=== PATIENT | female | born 1945 | race Caucasian/White ===

== ENCOUNTER 2017-10-17 11:00 | Outpatient (RCR) | payer MEDICARE, MEDICAID ==
[~2017-10-17 11:00] MED LIST: CYMBALTA 60MG60 MG PO; IMDUR 30MG30 MG/TAB PO; INCRUSE EL62.5 MCG/A IH; ISMO 20MG20 MG PO; KLOR-CON M1010 MEQ PO; LASIX 40MG TABL40 MG PO; LIPITOR 40MG TA40 MG PO; NEURONTIN300 MG/CAP PO; NEXIUM24HROTC PO; NITROSTAT0.4 MG/TAB SL; NORVASC 5MG5 MG/TAB PO; PLAVIX 75MG TAB75 MG PO; RT SPIRIVA18 MCG IH; THEO-24400 MG PO; VENTOLIN0.09 MG IH
== END 2017-11-26 14:36 | disposition home or self-care (01) ==
LOC: WSPT 11:00
DX: I89.0 Lymphedema, not elsewhere classified (principal); Z85.44 Personal history of malignant neoplasm of other female genital organs; Z98.890 Other specified postprocedural states
CPT/HCPCS: G8978-GP; G8979-GP; G8980-GP